=== PATIENT | male | born 1995 | race Caucasian/White ===

== ENCOUNTER 2017-11-05 10:12 | Emergency (ER) | END 2017-11-05 15:00 | disposition home or self-care (01) | DX: T40.1X1A Poisoning by heroin, accidental (unintentional), initial encounter (principal); R00.0 Tachycardia, unspecified; F11.23 Opioid dependence with withdrawal | CPT/HCPCS: 80053; 80307; 85025; 93005; 96374; 99284; J2060; J7030 ==

== ENCOUNTER 2017-12-26 00:01 | Inpatient (IN) ==
[2017-12-26] MEDS ORDERED: Sod Chloride 0.9% Inj 1,000 ML IV.SIG ONE ×2 (00:29→04:16)
[2017-12-26 00:52] LABS: Baso # (Auto) 0.1 th/mm3 (0.0-0.2); Baso % (Auto) 0.4 % (0.0-2.0); Eos # (Auto) 0.2 th/mm3 (0.0-0.4); Eos % (Auto) 1.1 % (0.0-4.0); Hematocrit 45.3 % (39.0-51.0); Hemoglobin 14.8 gm/dL (13.0-17.0); Lymph # (Auto) 1.2 th/mm3 (1.0-4.8); Lymph % (Auto) 7.8 % (9.0-44.0); Mean Corpuscular HGB Conc 32.6 % (32.0-36.0); Mean Corpuscular Hemoglobin 28.9 pg (27.0-34.0); Mean Corpuscular Volume 88.5 fL (80.0-100.0); Mean Platelet Volume 8.3 fL (7.0-11.0); Mono # (Auto) 0.5 th/mm3 (0.0-0.9); Mono % (Auto) 3.2 % (0.0-8.0); Neut # (Auto) 13.4 th/mm3 (1.8-7.7); Neut % (Auto) 87.5 % (16.0-70.0); Platelet Count 349 th/mm3 (150-450); Red Blood Count 5.11 mil/mm3 (4.50-5.90); Red Cell Distribution Width 13.8 % (11.6-17.2); White Blood Count 15.3 th/mm3 (4.0-11.0)
--- NOTE | 2017-12-26 01:12 | XR ---
EXAM DATE: 12/26/2017 12:59 AM EDT AGE/SEX: 22 years / Male INDICATIONS: Pain. CLINICAL DATA: This is the patient's initial encounter. Patient reports that signs and symptoms have been present for 1 day and indicates a pain score of Nonresponsive. MEDICAL/SURGICAL HISTORY: Non-responsive. Non-responsive. COMPARISON: No prior exams available for comparison. FINDINGS: Bony structures are intact and in normal alignment. Osseous density is normal. Soft tissues are unre markable. No radiopaque foreign bodies seen. CONCLUSION: Normal radiographic appearance of the left femur. Electronically signed by: Isidro Riley MD 12/26/2017 1:10 AM EDT
[2017-12-26 01:38] LABS: Alanine Aminotransferase 25 U/L (12-78); Albumin 4.6 g/dL (3.4-5.0); Anion Gap 19 meq/L (5-15); Aspartate Aminotransferase 22 U/L (15-37); Blood Urea Nitrogen 19 mg/dL (7-18); Carbon Dioxide 18.3 meq/L (21.0-32.0); Chloride 109 meq/L (98-107); Glomerular Filtration Rate 35 mL/min (>89); Glucose,Random 109 mg/dL (74-106); Sodium 146 meq/L (136-145)
[2017-12-26 01:47] LABS: Alkaline Phosphatase 106 U/L (45-117)
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
[2017-12-26] MEDS ORDERED: Bisacodyl 10 MG Supp RECTAL PRN (05:50)
[2017-12-26] MEDS: Sodium Chloride 0.45 % Inj 1,000 ML IV.CONT SCH ×3 (06:34→20:13)
[2017-12-26 07:21] LABS: CKMB Percent 1.1 % (0.0-4.0); Creatine Kinase MB 4.6 ng/mL (0.5-3.6)
[2017-12-26 09:59] LABS: Amorphous Sediment,Urine Occasional /hpf; Bilirubin,Urine Negative (Negative); Clarity,Urine Hazy (Clear); Color,Urine Yellow (Yellw/Straw); Glucose,Urine (UA) 50 mg/dL (Negative); Hyaline Casts,Urine 3 /lpf (0-3); Leukocyte Esterase,Urine Negative (Negative); Mucus,Urine Few /lpf (Occasional); Nitrite,Urine Negative (Negative); Squamous Epithelial Cell,Urine <1 /hpf (0-5)
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
[2017-12-26 15:09] LABS: Calcium 7.9 mg/dL (8.5-10.1); Carbon Dioxide 23.3 meq/L (21.0-32.0); Potassium 3.7 meq/L (3.5-5.1)
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
[2017-12-27] MEDS: Sodium Chloride 0.45 % Inj 1,000 ML IV.CONT SCH ×2 (03:00→08:45)
[2017-12-27 07:25] LABS: Baso % (Auto) 0.5 % (0.0-2.0); Eos # (Auto) 0.2 th/mm3 (0.0-0.4); Eos % (Auto) 2.3 % (0.0-4.0); Hematocrit 36.5 % (39.0-51.0); Hemoglobin 12.3 gm/dL (13.0-17.0); Lymph # (Auto) 2.5 th/mm3 (1.0-4.8); Lymph % (Auto) 23.7 % (9.0-44.0); Mean Corpuscular HGB Conc 33.8 % (32.0-36.0); Mean Corpuscular Hemoglobin 29.8 pg (27.0-34.0); Mean Corpuscular Volume 88.2 fL (80.0-100.0); Mean Platelet Volume 8.4 fL (7.0-11.0); Mono % (Auto) 9.7 % (0.0-8.0); Neut # (Auto) 6.8 th/mm3 (1.8-7.7); Neut % (Auto) 63.8 % (16.0-70.0); Platelet Count 212 th/mm3 (150-450); Red Blood Count 4.14 mil/mm3 (4.50-5.90); Red Cell Distribution Width 13.9 % (11.6-17.2); White Blood Count 10.6 th/mm3 (4.0-11.0)
[2017-12-27 07:31] LABS: Amphetamine Screen,Urine Neg (Neg); Barbiturate Screen,Urine Neg (Neg); Cannabinoid Screen,Urine Neg (Neg); Cocaine Screen,Urine Pos (Neg)
[2017-12-27 07:34] LABS: Opiate Screen,Urine Pos (Neg)
[2017-12-27 07:44] LABS: Calcium 8.7 mg/dL (8.5-10.1); Carbon Dioxide 26.2 meq/L (21.0-32.0); Potassium 3.5 meq/L (3.5-5.1)
--- NOTE | 2017-12-27 13:11 | P.PN ---
Subjective Interval history: Follow-up acute kidney disease/heroine abuse December 27, 2017-patient seen and examined, alert and oriented 3, renal indices improved, Physical Exam Vital signs: Vital Signs 12/26/17 16:00 12/26/17 17:33 12/26/17 20:00 Temperature 98.2 F 97.5 F L Pulse Rate 52 L 54 L Respiratory Rate 20 16 Blood Pressure 128/69 126/76 Pulse Oximetry 99 97 100 12/27/17 00:00 12/27/17 04:00 12/27/17 08:00 Temperature 98.4 F 97.9 F 97.9 F Pulse Rate 56 L 59 L 50 L Respiratory Rate 16 16 20 Blood Pressure 113/56 L 135/67 112/58 L Pulse Oximetry 93 L 97 98 Intake & Output 12/26/17 12/27/17 12/27/17 18:59 06:59 18:59 Intake Total 1360 / 1360 2810 / 2810 1000 / 1000 Output Total 520 / 520 1400 / 1400 Balance 840 / 840 1410 / 1410 1000 / 1000 Weight 89.5 kg 90.9 kg Intake: IV 1000 / 1000 2000 / 2000 1000 / 1000 1/2 Normal Saline Inj 1,000 ML 1000 / 1000 2000 / 2000 1000 / 1000 @ 150 mls/hr IV.CONT .[id number] [facility] Rx#:[id number] Oral 360 / 360 810 / 810 Output: Urine 520 / 520 1400 / 1400 Other: # Voids 3 1 # Bowel Movements 1 0 Weight On Admission 89.5 kg Narrative: GENERAL: NAD SKIN: Warm and dry. HEAD: Normocephalic. EYES: No scleral icterus. No injection or drainage. NECK: Supple, trachea midline. No JVD or lymphadenopathy. CARDIOVASCULAR: Regular rate and rhythm without murmurs, gallops, or rubs. RESPIRATORY: Breath sounds equal bilaterally. No accessory muscle use. GASTROINTESTINAL: Abdomen soft, non-tender, nondistended. MUSCULOSKELETAL: No cyanosis, or edema. BACK: Nontender without obvious deformity. No CVA tenderness. Results - Labs CBC & Chem 7: 12/27/17 05:47 12/27/17 06:47 Laboratory Results - last 24 hr 12/26/17 12/27/17 12/27/17 14:10 05:47 06:45 WBC 10.6 RBC 4.14 L Hgb 12.3 L D Hct 36.5 L MCV 88.2 MCH 29.8 MCHC 33.8 RDW 13.9 Plt Count 212 D MPV 8.4 Neut % (Auto) 63.8 Lymph % (Auto) 23.7 Cannon % (Auto) 9.7 H Eos % (Auto) 2.3 Baso % (Auto) 0.5 Neut # (Auto) 6.8 Lymph # (Auto) 2.5 Cannon # (Auto) 1.0 H Eos # (Auto) 0.2 Baso # (Auto) 0.0 WBC Differential . Differential Comment Auto diff final Sodium 141 Potassium 3.7 Chloride 108 H Carbon Dioxide 23.3 Anion Gap 10 BUN 18 Creatinine 1.82 H Estimated GFR 47 L Random Glucose 87 Calcium 7.9 L D Urine Opiates Screen Pos H Ur Barbiturates Screen Neg Ur Amphetamines Screen Neg U Benzodiazepines Scrn Neg Urine Cocaine Screen Pos U Cannabinoids Screen Neg 12/27/17 06:47 WBC RBC Hgb Hct MCV MCH MCHC RDW Plt Count MPV Neut % (Auto) Lymph % (Auto) Cannon % (Auto) Eos % (Auto) Baso % (Auto) Neut # (Auto) Lymph # (Auto) Cannon # (Auto) Eos # (Auto) Baso # (Auto) WBC Differential Differential Comment Sodium 146 H Potassium 3.5 Chloride 113 H Carbon Dioxide 26.2 Anion Gap 7 BUN 15 Creatinine 1.62 H Estimated GFR 54 L Random Glucose 95 Calcium 8.7 D Urine Opiates Screen Ur Barbiturates Screen Ur Amphetamines Screen U Benzodiazepines Scrn Urine Cocaine Screen U Cannabinoids Screen - Imaging None Assessment and Plan - Assessment (1) Acute kidney injury Code(s): N17.9 - Acute kidney failure, unspecified Status: Acute Plan: Acute kidney injury in patient with active intoxication with heroine. Likely related to dehydration. Improving with IV fluid. Continue IV fluid overnight. Follow-up BMP in a.m. (2) Heroin abuse Code(s): F11.10 - Opioid abuse, uncomplicated Status: Acute Plan: Acutely intoxicated on presentation. Patient is currently resting with no obvious signs of withdrawals. Continue to monitor. Appreciate psychiatry input. Clonidine as needed for withdrawal symptoms - Plan 22-year-old man with Acute renal injury Improved with IV fluid hydration Heroine abuse Counseling against [place] act lifted by psychiatry DVT prophylaxis: Low risk for VTE Discharge Planning: Discharge patient to home Condition on discharge: Improved Regular Diet as tolerated Ad Kate activity Rx written:None Follow-up with primary care physician in 1 week
== END 2017-12-27 15:13 | disposition home or self-care (01) ==
LOC: NEPE 00:01 → NEDA 06:58 → N04 11:31
PROVIDERS: ADMIT Hospitalist; ATTEND Hospitalist

== ENCOUNTER 2018-02-20 10:40 | Inpatient (IN) ==
[2018-02-20] MEDS ORDERED: Sod Chloride 0.9% Inj 1,000 ML IV.SIG ONE (12:06)
--- NOTE | 2018-02-20 12:18 | ED ---
HPI General Chief complaint: Respiratory Symptoms Stated complaint: medical complaint Time Seen by Provider: 02/20/18 11:42 Source: patient Mode of arrival: ambulatory Limitations: no limitations History of Present Illness HPI narrative: 22-year-old male with a history of IV drug use currently in a sober living home presents to the emergency department for evaluation after being notified of a "abnormal chest x-ray" that was obtained 3 weeks ago. Patient states that [facility] yesterday and was being treated for a right knee septic arthritis and an abscess to the right calf. Says that he received treatment from January 29 - February 19 with daptomycin. States his last dose was yesterday. Says the PICC line was removed because patient was unable to obtain home health care. Currently, patient states that his right knee is still painful but is able to ambulate. He denies subjective fevers or chills. Denies shortness of breath but states he has pain with deep breaths in his right posterior chest. Onset (ago): week(s) Location: lower extremity Radiation: non-radiation Severity: mild Pain Consistency: intermittent Relieving factors: none Associated symptoms: denies other symptoms Related Data Home Medications Medication Instructions Recorded Confirmed No Known Home Medications 12/26/17 02/20/18 Allergies Allergy/AdvReac Type Severity Reaction Status Date / Time No Known Allergies Allergy Verified 02/20/18 11:44 Review of Systems ROS: all other systems reviewed are negative [facility] Social History Social History Substance History: Active Abuse Second Hand Smoke Exposure: Yes Smoking Status: Former smoker Tobacco Type: Cigarettes How Often Do You Have a Drink Containing Alcohol: Monthly or less Recent Travel in [facility] within the Last 8 Weeks: No Recent Out of Country Travel within the Last 8 Weeks: No Immunization History Tetanus Immunization: <5 Years Hx Influenza Vaccine This Season: No Exam Narrative Exam Narrative: GENERAL: WD, WN in NAD SKIN: Focused skin assessment warm/dry. HEAD: Atraumatic. Normocephalic. EYES: Pupils equal and round. No scleral icterus. No injection or drainage. ENT: No nasal bleeding or discharge. Mucous membranes pink and moist. NECK: Trachea midline. No JVD. CARDIOVASCULAR: Regular rate and rhythm. No murmur appreciated. RESPIRATORY: No accessory muscle use. Clear to auscultation. Breath sounds equal bilaterally. GASTROINTESTINAL: Abdomen soft, non-tender, nondistended. Hepatic and splenic margins not palpable. No CVA tenderness MUSCULOSKELETAL: No obvious deformities. No clubbing. No cyanosis. No edema. Right knee-edematous when compared to the right, mild tenderness to palpation, full range of motion. No erythema. Skin intact. Neurovascularly intact. 3 cm incision site along the lateral aspect of the knee without dehiscence or erythema. Appears to be healing well. 10 cm healing incision site without erythema or dehiscence. NEUROLOGICAL: Awake and alert. No obvious cranial nerve deficits. Motor grossly within normal limits. Normal speech. PSYCHIATRIC: Appropriate mood and affect; insight and judgment normal. Course Initial Documented Vital Signs Temperature 98.9 F 02/20/18 10:48 Pulse Rate 84 02/20/18 10:48 Respiratory Rate 19 02/20/18 10:48 Blood Pressure 136/60 02/20/18 10:48 Pulse Oximetry 100 02/20/18 10:48 Last Documented Vital Signs Temperature 98.9 F 02/20/18 10:48 Pulse Rate 79 02/20/18 16:06 Respiratory Rate 16 02/20/18 16:06 Blood Pressure 136/80 02/20/18 16:06 Pulse Oximetry 100 02/20/18 16:06 Medical Decision Making MDM Narrative Medical decision making narrative: 22-year-old male presents to the emergency department for evaluation after being told he had a "abnormal chest x-ray". [facility] and was in treatment for right knee septic arthritis. He was receiving daptomycin 500 mg once a day approximately 2 weeks and his last dose was yesterday. He is does admit to chest pain with breathing. Vital signs stable. Labs are stable. Order CTA as patient states he has a history of IVDU, septic arthritis, pleuritic chest pain, and abnormal chest x-ray. CT is concerning for septic embolic disease. Will initiate vancomycin and zosyn. Pt will be admitted for IV abx. Spoke with Dr. Mata who agreed with the admission. Medical Screen Exam Complete: Yes Emergency Medical Condition: Yes Differential Diagnosis Differential Diagnosis: Septic pulmonary embolism, pulmonary embolism, pneumonia , arthritis Medical Records Medical records reviewed: Yes I reviewed the patient's medical records. Patient brought in records from [facility] from January 29 -February 05. He [facility] from the [facility] with right leg pain for about a week. He was seen by Dr. Fontaine, orthopedics and had a right knee arthrotomy with irrigation and debridement and right calf abscess with irrigation debridement. Infectious disease and orthopedic consults were continued and daptomycin 500mg IV Q24hrs was initiated. According to the notes page 3 of 46 and discharge disposition it states "if he gets released from correctional facility, then breanna WEEMS will remove his PICC line. Patient may come back to hospital for continuation of his treatment.". According to patient did not receive [facility] because he 'does not have insurance'. Lab Data Lab results reviewed: Yes I reviewed the patient's lab results. Lab results narrative: Reviewed from records January 29 - February [address] [facility]. Labs reported here to Joe February 17 demonstrates elevated white blood cell count 13.9, platelets 715. January 29, 2018 d-dimer 3.27. I do not see that patient has had a CT pulmonary angiogram of his chest in the [facility] notes, outpatient imaging with [facility], or in our system. Result diagrams: 02/20/18 13:18 02/20/18 13:18 Lab Results 02/20/18 02/20/18 02/20/18 Range/Units 13:18 13:18 13:18 WBC 6.7 (4.0-11.0) th/mm3 RBC 3.70 L (4.50-5.90) mil/mm3 Hgb 10.8 L (13.0-17.0) gm/dL Hct 32.5 L (39.0-51.0) % MCV 87.9 (80.0-100.0) fL MCH 29.2 (27.0-34.0) pg MCHC 33.3 (32.0-36.0) % RDW 14.5 (11.6-17.2) % Plt Count 412 D (150-450) th/mm3 MPV 7.5 (7.0-11.0) fL Neut % (Auto) 60.6 (16.0-70.0) % Lymph % (Auto) 28.5 (9.0-44.0) % Cla[place]orne % (Auto) 7.4 (0.0-8.0) % Eos % (Auto) 2.8 (0.0-4.0) % Baso % (Auto) 0.7 (0.0-2.0) % Neut # (Auto) 4.1 (1.8-7.7) th/mm3 Lymph # (Auto) 1.9 (1.0-4.8) th/mm3 [place]orne # (Auto) 0.5 (0.0-0.9) th/mm3 Eos # (Auto) 0.2 (0.0-0.4) th/mm3 Baso # (Auto) 0.0 (0.0-0.2) th/mm3 WBC Differential . Differential Comment Auto diff final PT 11.4 (9.8-11.6) sec INR 1.1 Ratio APTT (24.3-30.1) sec Sodium 142 (136-145) meq/L Potassium 4.0 (3.5-5.1) meq/L Chloride 105 (98-107) meq/L Carbon Dioxide 27.3 (21.0-32.0) meq/L Anion Gap 10 (5-15) meq/L BUN 11 (7-18) mg/dL Creatinine 0.87 (0.60-1.30) mg/dL Estimated GFR Greater than 89 (>89) mL/min Random Glucose 88 (74-106) mg/dL Lactic Acid (0.4-2.0) mmol/L Calcium 9.4 (8.5-10.1) mg/dL Total Bilirubin 0.3 (0.2-1.0) mg/dL AST 14 L (15-37) U/L ALT 43 (12-78) U/L Alkaline Phosphatase 140 H (45-117) U/L Total Protein 9.0 H (6.4-8.2) g/dL Albumin 3.1 L (3.4-5.0) g/dL 02/20/18 02/20/18 Range/Units 13:18 13:19 WBC (4.0-11.0) th/mm3 RBC (4.50-5.90) mil/mm3 Hgb (13.0-17.0) gm/dL Hct (39.0-51.0) % MCV (80.0-100.0) fL MCH (27.0-34.0) pg MCHC (32.0-36.0) % RDW (11.6-17.2) % Plt Count (150-450) th/mm3 MPV (7.0-11.0) fL Neut % (Auto) (16.0-70.0) % Lymph % (Auto) (9.0-44.0) % Cla[place]orne % (Auto) (0.0-8.0) % Eos % (Auto) (0.0-4.0) % Baso % (Auto) (0.0-2.0) % Neut # (Auto) (1.8-7.7) th/mm3 Lymph # (Auto) (1.0-4.8) th/mm3 Cla[place]orne # (Auto) (0.0-0.9) th/mm3 Eos # (Auto) (0.0-0.4) th/mm3 Baso # (Auto) (0.0-0.2) th/mm3 WBC Differential Differential Comment PT (9.8-11.6) sec INR Ratio APTT 25.7 (24.3-30.1) sec Sodium (136-145) meq/L Potassium (3.5-5.1) meq/L Chloride (98-107) meq/L Carbon Dioxide (21.0-32.0) meq/L Anion Gap (5-15) meq/L BUN (7-18) mg/dL Creatinine (0.60-1.30) mg/dL Estimated GFR (>89) mL/min Random Glucose (74-106) mg/dL Lactic Acid 1.1 (0.4-2.0) mmol/L Calcium (8.5-10.1) mg/dL Total Bilirubin (0.2-1.0) mg/dL AST (15-37) U/L ALT (12-78) U/L Alkaline Phosphatase (45-117) U/L Total Protein (6.4-8.2) g/dL Albumin (3.4-5.0) g/dL Imaging Data Radiologist's impression: Chest CTA 02/20/18 12:06 CONCLUSION: 1. No evidence for pulmonary embolism. 2. Bilateral cavitary nodules identified. Bilateral septic embolic disease would be the leading consideration given the history. Discharge Plan Discharge Disposition Patient Disposition: 30 Still Patient Discharge Condition Condition: Stable Discharge Details Diagnosis: Acute septic pulmonary embolus Physicians Team ED Provider: Nida Beasley ED Midlevel Provider: Noa Butler Primary Care Provider: Primary Care Diane Oquendo Attending Provider: Alber Mata Other Providers: Shree Pablo Status ED Status: Admitted Observation Patient
[2018-02-20 13:47] LABS: INR 1.1 Ratio; Prothrombin Time 11.4 sec (9.8-11.6)
[2018-02-20 13:50] LABS: Baso % (Auto) 0.7 % (0.0-2.0); Eos # (Auto) 0.2 th/mm3 (0.0-0.4); Eos % (Auto) 2.8 % (0.0-4.0); Hematocrit 32.5 % (39.0-51.0); Hemoglobin 10.8 gm/dL (13.0-17.0); Lymph # (Auto) 1.9 th/mm3 (1.0-4.8); Lymph % (Auto) 28.5 % (9.0-44.0); Mean Corpuscular HGB Conc 33.3 % (32.0-36.0); Mean Corpuscular Hemoglobin 29.2 pg (27.0-34.0); Mean Corpuscular Volume 87.9 fL (80.0-100.0); Mean Platelet Volume 7.5 fL (7.0-11.0); Mono # (Auto) 0.5 th/mm3 (0.0-0.9); Mono % (Auto) 7.4 % (0.0-8.0); Neut # (Auto) 4.1 th/mm3 (1.8-7.7); Neut % (Auto) 60.6 % (16.0-70.0); Platelet Count 412 th/mm3 (150-450); Red Cell Distribution Width 14.5 % (11.6-17.2); White Blood Count 6.7 th/mm3 (4.0-11.0)
[2018-02-20 14:22] LABS: Alanine Aminotransferase 43 U/L (12-78); Albumin 3.1 g/dL (3.4-5.0); Anion Gap 10 meq/L (5-15); Aspartate Aminotransferase 14 U/L (15-37); Blood Urea Nitrogen 11 mg/dL (7-18); Calcium 9.4 mg/dL (8.5-10.1); Carbon Dioxide 27.3 meq/L (21.0-32.0); Chloride 105 meq/L (98-107); Glomerular Filtration Rate Greater Than 89 mL/min (>89); Glucose,Random 88 mg/dL (74-106); Sodium 142 meq/L (136-145)
[2018-02-20 14:24] LABS: Alkaline Phosphatase 140 U/L (45-117)
--- NOTE | 2018-02-20 15:49 | CT ---
EXAM DATE: 02/20/2018 3:39 PM EDT AGE/SEX: 22 years / Male INDICATIONS: Shortness of breath for a couple weeks. CLINICAL DATA: This is the patient's initial encounter. Patient reports that signs and symptoms have been present for 2 weeks and indicates a pain score of 4/10. MEDICAL/SURGICAL HISTORY: . MRSA, septic arthritis. None. RADIATION DOSE: 9.97 CTDI (mGy) COMPARISON: No prior exams available for comparison. TECHNIQUE: Volumetric scanning was performed using a multi-row detector CT scanner during bolus infu oxana of 75 ml Omnipaque 350 (iohexol) nonionic water-soluble contrast as a single exam dose. The john a was post processed with a variety of visualization algorithms including full volume maximum intensi ty projection and sliding thin slab reformation. Using automated exposure control and adjustment of the mA and/or kV according to patient size, radiation dose was kept as low as reasonably achievable t o obtain optimal diagnostic quality images. DICOM format image data is available electronically for review and comparison. FINDINGS: The superior segment of the left lower lobe a thick walled cavitary focus is identified with air-flui d level measuring 2 x 1.2 cm in AP transverse dimension. There is also a cavitary mass with air-fluid level and thick wall in the right lower lobe measuring 4.2 x 2.5 cm in transverse and AP dimension, adjacent right lower lobe cavitary pleural-based lesion with air-fluid level measuring 2.8 x 2.7 cm i n transverse and AP dimension. There is a small thick walled cavitary lesion in the left lower lobe m easuring 1.5 cm x 1.0 cm on image 92. No pathologically enlarged lymph nodes. No pleural or pericardi al effusions. There are no pulmonary emboli identified. Osseous structures are intact. CONCLUSION: 1. No evidence for pulmonary embolism. 2. Bilateral cavitary nodules identified. Bilateral septic embolic disease would be the leading cons ideration given the history. Electronically signed by: Agapito Clayton MD 02/20/2018 3:48 PM EDT
[2018-02-20] MEDS ORDERED: Piperacil/Tazo 4.5 GM Premix 4.5 GM/100 ML BAG IV.SIG ONE (15:52)
[2018-02-20] MEDS ORDERED: Vancomycin Inj 1 GM/200 ML PIGGYBACK IV.SIG ONE (15:52)
[2018-02-20] MEDS ORDERED: Bisacodyl 10 MG Supp RECTAL PRN ×2 (16:49→16:51)
[2018-02-20] MEDS ORDERED: Vancomycin Consult Pharmacy OTHER PRN (16:53)
--- NOTE | 2018-02-20 16:56 | P.HP ---
History of Present Illness Primary Care Physician: No Primary Care Physician Chief Complaint: Abnormal CXR History of Present Illness: This is a pleasant 22-year-old male with a history of IV drug use currently in a sober living home presents to the emergency department for evaluation after being notified of a "abnormal chest x-ray" that was obtained 3 weeks ago. Patient states that he [facility] and was being treated for a right knee septic arthritis and an abscess to the right calf. Says that he received treatment from January 29 - February 19 with daptomycin. States his last dose was yesterday. Says the PICC line was removed because patient was unable to obtain home health care. Currently, patient states that his right knee is still painful but is able to ambulate. He denies subjective fevers or chills. Denies shortness of breath but states he has pain with deep breaths in his right posterior chest. Review of Systems All other systems reviewed negative except as stated in HPI PMFSH - History History Provided By: Patient - Medical History Medical History: Medical History (Last Updated 02/20/18 @ 19:52 by Alber Mata MD) Recent surgical procedure on lower extremity - Surgical History Surgical History: Surgical History (Last Reviewed 01/17/18 @ 03:40 by Rachel Ordonez DO) No history of previous surgery - Family History Family History: Family History (Last Updated 02/20/18 @ 19:51 by Alber Mata MD) Other Family history of hypertension - Tobacco History Second Hand Smoke Exposure: Yes Smoking Status: Former smoker Tobacco Type: Cigarettes - Alcohol History How Often Do You Have a Drink Containing Alcohol: Monthly or less - Substance Use History Substance History: Active Abuse - Travel History Recent Travel in the [facility] Within the Last 8 Weeks: No Recent Travel Out of the Country Within the Last 8 Weeks: No - Immunization History Tetanus Immunization: <5 Years Hx Influenza Vaccine This Season: No Medications and Allergies Active Medications: Active Medications Vancomycin HCl 1,000 mg/ (Sodium Chloride) 250 mls @ 200 mls/hr IV.SIG ONCE ONE Stop: 02/20/18 18:14 Sodium Chloride (Ns Flush) 2 ml IV.FLUSH PRN PRN PRN Reason: FLUSH AFTER USING IV ACCESS Allergies Allergy/AdvReac Type Severity Reaction Status Date / Time No Known Allergies Allergy Verified 02/20/18 11:44 Home Medications Medication Instructions Recorded Confirmed Type No Known Home Medications 12/26/17 02/20/18 History Exam Vital signs: Vital Signs 02/20/18 10:48 02/20/18 12:06 02/20/18 16:06 Temperature 98.9 F Pulse Rate 84 79 Respiratory Rate 19 16 Blood Pressure 136/60 136/80 Pulse Oximetry 100 97 100 Intake & Output 02/19/18 02/20/18 02/20/18 18:59 06:59 18:59 Intake Total 1000 / 1000 Balance 1000 / 1000 Weight 74.843 kg Intake: IV 1000 / 1000 NS Inj 1,000 ML @ Wide Open IV. 1000 / 1000 SIG BOLUS ONE Rx#:[id number] Narrative: GENERAL: WD, WN in NAD SKIN: Focused skin assessment warm/dry. HEAD: Atraumatic. Normocephalic. EYES: Pupils equal and round. No scleral icterus. No injection or drainage. ENT: No nasal bleeding or discharge. Mucous membranes pink and moist. NECK: Trachea midline. No JVD. CARDIOVASCULAR: Regular rate and rhythm. No murmur appreciated. RESPIRATORY: No accessory muscle use. Clear to auscultation. Breath sounds equal bilaterally. GASTROINTESTINAL: Abdomen soft, non-tender, nondistended. Hepatic and splenic margins not palpable. No CVA tenderness MUSCULOSKELETAL: No obvious deformities. No clubbing. No cyanosis. No edema. Right knee-edematous when compared to the right, mild tenderness to palpation, full range of motion. No erythema. Skin intact. Neurovascularly intact. 3 cm incision site along the lateral aspect of the knee without dehiscence or erythema. Appears to be healing well. 10 cm healing incision site without erythema or dehiscence. NEUROLOGICAL: Awake and alert. No obvious cranial nerve deficits. Motor grossly within normal limits. Normal speech. PSYCHIATRIC: Appropriate mood and affect; insight and judgment normal. Results - Labs CBC & Chem 7: 02/20/18 13:18 02/20/18 13:18 Labs: Laboratory Results - last 24 hr 02/20/18 02/20/18 02/20/18 13:18 13:18 13:18 WBC 6.7 RBC 3.70 L Hgb 10.8 L Hct 32.5 L MCV 87.9 MCH 29.2 MCHC 33.3 RDW 14.5 Plt Count 412 D MPV 7.5 Neut % (Auto) 60.6 Lymph % (Auto) 28.5 Marion % (Auto) 7.4 Eos % (Auto) 2.8 Baso % (Auto) 0.7 Neut # (Auto) 4.1 Lymph # (Auto) 1.9 Marion # (Auto) 0.5 Eos # (Auto) 0.2 Baso # (Auto) 0.0 WBC Differential . Differential Comment Auto diff final PT 11.4 INR 1.1 APTT Sodium 142 Potassium 4.0 Chloride 105 Carbon Dioxide 27.3 Anion Gap 10 BUN 11 Creatinine 0.87 Estimated GFR Greater than 89 Random Glucose 88 Lactic Acid Calcium 9.4 Total Bilirubin 0.3 AST 14 L ALT 43 Alkaline Phosphatase 140 H Total Protein 9.0 H Albumin 3.1 L 02/20/18 02/20/18 13:18 13:19 WBC RBC Hgb Hct MCV MCH MCHC RDW Plt Count MPV Neut % (Auto) Lymph % (Auto) Marion % (Auto) Eos % (Auto) Baso % (Auto) Neut # (Auto) Lymph # (Auto) Marion # (Auto) Eos # (Auto) Baso # (Auto) WBC Differential Differential Comment PT INR APTT 25.7 Sodium Potassium Chloride Carbon Dioxide Anion Gap BUN Creatinine Estimated GFR Random Glucose Lactic Acid 1.1 Calcium Total Bilirubin AST ALT Alkaline Phosphatase Total Protein Albumin - Imaging Impressions Chest CTA 02/20/18 12:06 CONCLUSION: 1. No evidence for pulmonary embolism. 2. Bilateral cavitary nodules identified. Bilateral septic embolic disease would be the leading consideration given the history. Caprini VTE Risk Assessment Caprini VTE Risk Assessment: Moderate/High Risk (score >= 2) Caprini Risk Assessment Model: Point Value = 1 Point Value = 2 Point Value = 3 Point Value = 5 Age 41-60 Minor surgery BMI > 25 kg/m2 Swollen legs Varicose veins or History of unexplained or recurrent spontaneous Oral contraceptives or hormone replacement Sepsis (< 1 month) Serious lung disease, including pneumonia (< 1 month) Abnormal pulmonary function Acute myocardial infarction Congestive heart failure (< 1 month) History of inflammatory bowel disease Medical patient at bed rest Age 61-74 Arthroscopic surgery Major open surgery (> 45 min) Laparoscopic surgery (> 45 min) Malignancy Confined to bed (> 72 hours) Immobilizing plaster cast Central venous access Age >= 75 History of VTE Family history of VTE Factor V Leiden Prothrombin [id number] Lupus anticoagulant Anticardiolipin antibodies Elevated serum homocysteine Heparin-induced thrombocytopenia Other congenital or acquired thrombophilia Stroke (< 1 month) Elective arthroplasty Hip, pelvis, or leg fracture Acute spinal cord injury (< 1 month) Prophylaxis Regimen: Total Risk Factor Score Risk Level Prophylaxis Regimen 0-1 Low Early ambulation 2 Moderate Order ONE of the following: *Sequential Compression Device (SCD) *Heparin 5000 units SQ BID 3-4 Higher Order ONE of the following medications: *Heparin 5000 units SQ TID *Enoxaparin/Lovenox 40 mg SQ daily (WT < 150 kg, CrCl > 30 mL/min) *Enoxaparin/Lovenox 30 mg SQ daily (WT < 150 kg, CrCl > 10-29 mL/min) *Enoxaparin/Lovenox 30 mg SQ BID (WT < 150 kg, CrCl > 30 mL/min) AND/OR *Sequential Compression Device (SCD) 5 or more Highest Order ONE of the following medications: *Heparin 5000 units SQ TID (Preferred with Epidurals) *Enoxaparin/Lovenox 40 mg SQ daily (WT < 150 kg, CrCl > 30 mL/min) *Enoxaparin/Lovenox 30 mg SQ daily (WT < 150 kg, CrCl > 10-29 mL/min) *Enoxaparin/Lovenox 30 mg SQ BID (WT < 150 kg, CrCl > 30 mL/min) AND *Sequential Compression Device (SCD) Assessment and Plan - Plan 1. Septic Emboli discussed with ER physician, the patient had CTA with evidence of Bilateral Cavitary nodules bilateral Septic embolic disease, started on Vancomycin and Zosyn, following ID specialist recommendations Echocardiogram, following blood cultures. 2. right calf abscess status post surgery, will need to get his History from [facility] 3. Active IVDU. DVt prophylaxis with Lovenox. Code Status: Full code. Discussed Condition With: patient and ER physician Discharge Planning: once cleared by specialist.
[2018-02-20] MEDS ORDERED: Vancomycin Inj 1,000 MG in Sodium Chlor 0.9% Inj 250 ML IV.SIG ONE (17:00)
[2018-02-20] MEDS: Sod Chloride 0.9% Inj 1,000 ML IV.CONT SCH (18:51)
[2018-02-20] MEDS ORDERED: Senna/Docusate Sodium 8.6/50 MG Tablet PO SCH (21:00)
[2018-02-20 21:36] LABS: Hepatitits B Surface Antigen Nonreactive (Nonreactive)
[2018-02-20 21:53] LABS: Hepatitis A IgM Antibody Nonreactive (Nonreactive)
[2018-02-20] MEDS: Enoxaparin Inj 40 MG/0.4 ML Syringe SQ SCH (22:41)
[2018-02-20] MEDS: guaiFENesin 600 MG ER Tablet PO SCH (22:41)
[2018-02-20] MEDS: Piperacil/Tazo 3.375 GM Premix 50 ML IV.SIG SCH (22:41)
[2018-02-20] MEDS: Senna/Docusate Sodium 8.6/50 MG Tablet PO SCH (22:42)
[2018-02-20] MEDS: Vancomycin Inj 1,000 MG in Sodium Chlor 0.9% Inj 250 ML IV.SIG SCH (23:27)
[2018-02-21] MEDS: Acetaminophen 325 MG Tablet PO PRN ×3 (00:10→09:12)
[2018-02-21] MEDS: Sod Chloride 0.9% Inj 1,000 ML IV.CONT SCH ×2 (03:12→15:56)
[2018-02-21] MEDS: Piperacil/Tazo 3.375 GM Premix 50 ML IV.SIG SCH ×4 (04:07→21:42)
[2018-02-21] MEDS: guaiFENesin 600 MG ER Tablet PO SCH ×2 (09:12→21:42)
[2018-02-21] MEDS: Senna/Docusate Sodium 8.6/50 MG Tablet PO SCH ×2 (09:12→22:16)
[2018-02-21] MEDS: Vancomycin Inj 1,000 MG in Sodium Chlor 0.9% Inj 250 ML IV.SIG SCH ×2 (09:13→18:20)
--- NOTE | 2018-02-21 11:32 | P.PN ---
Subjective Interval history: Patient seen and examined this morning, their vitals are stable and the patient is afebrile. Denies CP or SOB. Taking he feels weak. Right knee with limited ROM, asking for physical therapy. Worried that he cannot pay for his hospitalization, wants to go back to his sober living. Physical Exam Vital signs: Vital Signs 02/20/18 12:06 02/20/18 16:06 02/20/18 20:00 Temperature Pulse Rate 79 Respiratory Rate 16 Blood Pressure 136/80 Pulse Oximetry 97 100 98 02/20/18 22:00 02/21/18 00:00 02/21/18 00:32 Temperature 97.5 F L 98 F Pulse Rate 83 68 65 Respiratory Rate 16 16 16 Blood Pressure 130/71 120/66 Pulse Oximetry 100 100 02/21/18 01:21 02/21/18 03:50 02/21/18 06:13 Temperature 98 F Pulse Rate 65 Respiratory Rate 18 16 18 Blood Pressure 122/60 Pulse Oximetry 100 02/21/18 08:00 02/21/18 08:24 02/21/18 08:25 Temperature 97.8 F Pulse Rate 58 L 65 Respiratory Rate 20 14 Blood Pressure 121/63 Pulse Oximetry 99 100 Intake & Output 02/20/18 02/21/18 02/21/18 18:59 06:59 18:59 Intake Total 1250 / 1250 4250 / 4250 Output Total 400 / 400 Balance 1250 / 1250 4250 / 4250 -400 / -400 Weight 74.843 kg 75 kg Intake: IV 1250 / 1250 1450 / 1450 NS Inj 1,000 ML @ 100 mls/hr IV 1000 / 1000 .CONT .Q10H [place] Rx#:[id number] Zosyn 3.375 GM Premix 50 ML @ 100 / 100 100 mls/hr IV.SIG Q6H [place] Rx#: [id number] NS Inj 1,000 ML @ Wide Open IV. 1000 / 1000 SIG [facility] ONE Rx#:[id number] Vancomycin Inj 1,000 MG In NS 250 / 250 250 / 250 Inj 250 ML @ 250 mls/hr IV.SIG Q8H [place] Rx#:[id number] Oral 2800 / 2800 Output: Urine 400 / 400 Other: # Voids 5 # Bowel Movements 0 Weight On Admission 74.843 kg Narrative: GENERAL: Well-appearing, no acute distress SKIN: Warm and dry. HEAD: Normocephalic. EYES: No scleral icterus. No injection or drainage. NECK: Supple, trachea midline. No JVD or lymphadenopathy. CARDIOVASCULAR: Regular rate and rhythm without murmurs, gallops, or rubs. RESPIRATORY: Breath sounds equal bilaterally. No accessory muscle use. GASTROINTESTINAL: Abdomen soft, non-tender, nondistended. MUSCULOSKELETAL: Right knee: swollen, limited ROM compared to left, medial incision is c/d/i Results - Labs CBC & Chem 7: 02/21/18 11:15 02/21/18 11:15 Laboratory Results - last 24 hr 02/20/18 02/20/18 02/20/18 13:18 13:18 13:18 WBC 6.7 RBC 3.70 L Hgb 10.8 L Hct 32.5 L MCV 87.9 MCH 29.2 MCHC 33.3 RDW 14.5 Plt Count 412 D MPV 7.5 Neut % (Auto) 60.6 Lymph % (Auto) 28.5 [place] % (Auto) 7.4 Eos % (Auto) 2.8 Baso % (Auto) 0.7 Neut # (Auto) 4.1 Lymph # (Auto) 1.9 [place] # (Auto) 0.5 Eos # (Auto) 0.2 Baso # (Auto) 0.0 WBC Differential . Differential Comment Auto diff final PT 11.4 INR 1.1 APTT Sodium 142 Potassium 4.0 Chloride 105 Carbon Dioxide 27.3 Anion Gap 10 BUN 11 Creatinine 0.87 Estimated GFR Greater than 89 Random Glucose 88 Lactic Acid Calcium 9.4 Total Bilirubin 0.3 AST 14 L ALT 43 Alkaline Phosphatase 140 H Total Protein 9.0 H Albumin 3.1 L TSH Hepatitis A IgM Ab Hep Bs Antigen Hep B Core IgM Ab Hep C IgG Ab HIV 1&2 Ab/P24 Ag 4thGn 02/20/18 02/20/18 02/20/18 13:18 13:19 18:45 WBC RBC Hgb Hct MCV MCH MCHC RDW Plt Count MPV Neut % (Auto) Lymph % (Auto) [place] % (Auto) Eos % (Auto) Baso % (Auto) Neut # (Auto) Lymph # (Auto) [place] # (Auto) Eos # (Auto) Baso # (Auto) WBC Differential Differential Comment PT INR APTT 25.7 Sodium Potassium Chloride Carbon Dioxide Anion Gap BUN Creatinine Estimated GFR Random Glucose Lactic Acid 1.1 Calcium Total Bilirubin AST ALT Alkaline Phosphatase Total Protein Albumin TSH 1.290 Hepatitis A IgM Ab Hep Bs Antigen Hep B Core IgM Ab Hep C IgG Ab HIV 1&2 Ab/P24 Ag 4thGn 02/20/18 02/20/18 18:45 18:45 WBC RBC Hgb Hct MCV MCH MCHC RDW Plt Count MPV Neut % (Auto) Lymph % (Auto) [place] % (Auto) Eos % (Auto) Baso % (Auto) Neut # (Auto) Lymph # (Auto) [place] # (Auto) Eos # (Auto) Baso # (Auto) WBC Differential Differential Comment PT INR APTT Sodium Potassium Chloride Carbon Dioxide Anion Gap BUN Creatinine Estimated GFR Random Glucose Lactic Acid Calcium Total Bilirubin AST ALT Alkaline Phosphatase Total Protein Albumin TSH Hepatitis A IgM Ab Nonreactive Hep Bs Antigen Nonreactive Hep B Core IgM Ab Nonreactive Hep C IgG Ab Nonreactive HIV 1&2 Ab/P24 Ag 4thGn Nonreactive Microbiology 02/20/18 13:14 Blood - Peripheral Aerobic Blood Culture - Preliminary No growth in 1 day 02/20/18 13:14 Blood - Peripheral Anaerobic Blood Culture - Preliminary No growth in 1 day 02/20/18 13:19 Blood - Peripheral Aerobic Blood Culture - Preliminary No growth in 1 day 02/20/18 13:19 Blood - Peripheral Anaerobic Blood Culture - Preliminary No growth in 1 day - Imaging Impressions Chest CTA 02/20/18 12:06 CONCLUSION: 1. No evidence for pulmonary embolism. 2. Bilateral cavitary nodules identified. Bilateral septic embolic disease would be the leading consideration given the history. Assessment and Plan - Plan In summary this is a 22-year-old male with a medical history that is significant for IV drug abuse is currently living in a sober home presented to [facility] after being notified of an abnormal outpatient chest x-ray that was obtained 3 weeks ago. The patient had received treatment from January 29 February 19 with daptomycin for septic arthritis and abscess of the right knee to calf. Recently released from [facility], could not get PICC line due to inability to get home health. Septic emboli -CTA shows evidence of bilateral cavitary nodules with bilateral septic embolic disease -He was started on vancomycin and Zosyn ID was consulted, echo and blood cultures are pending, no growth to date Right calf abscess status post surgical debridement Active IV drug abuse Patient stated he did not want to be on opioids and requested ibuprofen P prophylaxis: Lovenox
[2018-02-21 11:37] LABS: Baso % (Auto) 0.6 % (0.0-2.0); Eos # (Auto) 0.2 th/mm3 (0.0-0.4); Eos % (Auto) 3.2 % (0.0-4.0); Hematocrit 31.9 % (39.0-51.0); Hemoglobin 10.5 gm/dL (13.0-17.0); Lymph # (Auto) 1.3 th/mm3 (1.0-4.8); Lymph % (Auto) 22.6 % (9.0-44.0); Mean Corpuscular HGB Conc 33.1 % (32.0-36.0); Mean Corpuscular Hemoglobin 29.2 pg (27.0-34.0); Mean Corpuscular Volume 88.3 fL (80.0-100.0); Mean Platelet Volume 7.3 fL (7.0-11.0); Mono # (Auto) 0.4 th/mm3 (0.0-0.9); Neut # (Auto) 3.7 th/mm3 (1.8-7.7); Neut % (Auto) 65.6 % (16.0-70.0); Platelet Count 380 th/mm3 (150-450); Red Blood Count 3.61 mil/mm3 (4.50-5.90); Red Cell Distribution Width 14.5 % (11.6-17.2); White Blood Count 5.6 th/mm3 (4.0-11.0)
[2018-02-21 11:58] LABS: Anion Gap 9 meq/L (5-15); Blood Urea Nitrogen 8 mg/dL (7-18); Calcium 8.8 mg/dL (8.5-10.1); Chloride 106 meq/L (98-107); Glomerular Filtration Rate Greater Than 89 mL/min (>89); Glucose,Random 102 mg/dL (74-106); Potassium 4.1 meq/L (3.5-5.1); Sodium 143 meq/L (136-145)
--- NOTE | 2018-02-21 18:31 | MB ---
cc: Shree Pablo MD DATE: 02/21/2018 REQUESTING PHYSICIAN: Dr. Mata REASON: Septic emboli. HISTORY OF PRESENT ILLNESS: This is a 22-year-old white male who was treated for septic arthritis of the right knee and bacteremia at [facility] ([place], [place]). The patient was incarcerated at the [facility] on 01/23/2018 and while he was incarcerated, he developed swelling of his right knee and was sent to [facility] ([place], [place]) for evaluation and was found to have septic arthritis. He was discharged back to the [facility] on IV daptomycin to be treated for 6 weeks. The patient was discharged from the [facility] on 02/19/2018. He tells me that when he was discharged from the [facility] he was told to go and get a CT scan to evaluate an abnormal chest x-ray that was obtained about 3 weeks ago. He states that he was having problems with pain in his upper back and coughing spells and sweats and chills, which would improve with ibuprofen. He was also receiving tramadol at the [facility]. He also notes that he was having occasional cough with yellow sputum. He presented here at [place] and a CT scan of the chest was performed and it showed bilateral cavitary nodules including a cavitary mass with air fluid level and thick wall in the right lower lobe measuring 4.2 x 2.5 cm and in the left lower lobe with thick-walled cavity focus with air fluid level measuring 2 x 1.2 cm. The patient tells me that he was treated for Staph at [facility]. Information about the cultures were unavailable at this time. Currently, is complaining of pain in the right upper back. He states that it has been at the left upper back, as well, but that improved after he heard a "pop" when he twisted his upper back in bed. His white count is normal. He is afebrile. He denies shortness of breath and is comfortable in room air. PAST MEDICAL HISTORY: Cellulitis of the right lower extremity 1 year ago. Septic arthritis of the right knee. ALLERGIES: NO KNOWN DRUG ALLERGIES. MEDICATIONS: 1. Piperacillin/tazobactam. 2. Vancomycin. 3. Ibuprofen. 4. Lovenox. 5. Mucinex. SOCIAL HISTORY: Former tobacco use. Occasional alcohol use. Past history of substance or drug abuse. The patient currently in rehabilitation. FAMILY HISTORY: Noncontributory. REVIEW OF SYSTEMS: All systems have been reviewed and are negative, except for that mentioned in the history of present illness. PHYSICAL EXAMINATION: GENERAL: Well-developed male who is in no acute distress. He is awake and alert and oriented. VITAL SIGNS: Temperature 98 degrees, BP 115/65, respirations 20, heart rate 83. HEENT: Head is atraumatic. Extraocular movements grossly intact. Pupils reactive to light. No icterus. Oropharynx moist mucosa without lesions. No thrush. NECK: Supple, without adenopathy. LUNGS: Clear to auscultation with decreased breath sounds at the bases. HEART: Regular S1, S2, without murmurs, rubs or gallops. ABDOMEN: Bowel sounds present. Soft, no tenderness appreciated. RECTAL: Not performed. EXTREMITIES: No clubbing or cyanosis. The patient has a scar at the inner right tibia, where an abscess was drained recently. Very mild right knee swelling. No peripheral evidence of emboli. SKIN: No rash. NEUROLOGIC: No gross focal finding. PSYCHIATRIC: Patient is calm and cooperative. LABORATORY DATA: WBC 5.6, platelets 386, 5% neutrophils, 22% lymphocytes, 8% monocytes, hemoglobin 10.5, creatinine 0.91, BUN 8, sodium 143. HIV nonreactive. Hepatitis serology is negative. IMPRESSION: Septic emboli lesions in the lungs in a patient with recent bacteremia and septic arthritis of the right knee, who was been treated with daptomycin intravenous which is probably for methicillin-resistant Staphylococcus aureus. However, the culture data is not available at this time. The patient is status post also treatment for septic arthritis of the right knee, which may have been the source of the bacteremia. The patient is in recovery for IV drug abuse. He appears to have good insight. He is anxious to get back to his drug rehabilitation setting once a decision is made on his antibiotic treatment. RECOMMENDATIONS: 1. Continue vancomycin. 2. Continue piperacillin/tazobactam. 3. Order sputum culture if he is able to give a sample. 4. Monitor blood cultures. 5. Monitor clinical status and response to treatment. The patient very likely will need to continue with IV treatment for the septic emboli. Thank you for this consultation. I will monitor the patient's progress with you and make further recommendations and followup as necessary. Shree Pablo MD FFD/ct , 01:47 PM , 01:59 PM
[2018-02-21] MEDS: Enoxaparin Inj 40 MG/0.4 ML Syringe SQ SCH (21:41)
[2018-02-21] MEDS ORDERED: Pharmacy Ordered Lab Info OTHER ONE (23:45)
[2018-02-22] MEDS: Vancomycin Inj 1,000 MG in Sodium Chlor 0.9% Inj 250 ML IV.SIG SCH ×4 (00:40→22:59)
[2018-02-22] MEDS: Sod Chloride 0.9% Inj 1,000 ML IV.CONT SCH ×3 (01:32→19:07)
[2018-02-22] MEDS: Piperacil/Tazo 3.375 GM Premix 50 ML IV.SIG SCH ×4 (04:53→21:30)
[2018-02-22] MEDS: guaiFENesin 600 MG ER Tablet PO SCH ×2 (08:52→20:36)
[2018-02-22] MEDS: Senna/Docusate Sodium 8.6/50 MG Tablet PO SCH ×2 (08:59→20:36)
--- NOTE | 2018-02-22 09:42 | P.PN ---
Subjective Interval history: Patient seen and examined this morning, their vitals are stable and the patient is afebrile. Denies CP or SOB. Feels weakness in right leg. Physical Exam Vital signs: Vital Signs 02/21/18 12:00 02/21/18 15:18 02/21/18 16:00 Temperature 98 F 97.7 F Pulse Rate 83 80 79 Respiratory Rate 20 16 20 Blood Pressure 115/65 132/57 L Pulse Oximetry 98 99 02/21/18 19:02 02/21/18 20:00 02/21/18 23:14 Temperature 97.9 F Pulse Rate 79 80 74 Respiratory Rate 20 18 18 Blood Pressure 127/62 Pulse Oximetry 96 02/22/18 00:00 02/22/18 04:00 02/22/18 08:00 Temperature 97.6 F 97.9 F 98.6 F Pulse Rate 88 59 L 78 Respiratory Rate 18 18 18 Blood Pressure 153/74 H 108/57 L 119/62 Pulse Oximetry 100 97 99 Intake & Output 02/21/18 02/22/18 02/22/18 18:59 06:59 18:59 Intake Total 1350 / 1350 600 / 600 300 / 300 Output Total 800 / 800 400 / 400 Balance 550 / 550 200 / 200 300 / 300 Intake: IV 1350 / 1350 600 / 600 300 / 300 NS Inj 1,000 ML @ 100 mls/hr IV 1000 / 1000 .CONT .Q10H [place] Rx#:[id number] Zosyn 3.375 GM Premix 50 ML @ 100 / 100 100 / 100 50 / 50 100 mls/hr IV.SIG Q6H [place] Rx#: [id number] Vancomycin Inj 1,000 MG In NS 250 / 250 500 / 500 250 / 250 Inj 250 ML @ 250 mls/hr IV.SIG Q8H [place] Rx#:[id number] Output: Urine 800 / 800 400 / 400 Other: # Voids 2 Date of Last Bowel Movement 02/20/18 Narrative: GENERAL: Well-appearing, no acute distress SKIN: Warm and dry. HEAD: Normocephalic. EYES: No scleral icterus. No injection or drainage. NECK: Supple, trachea midline. No JVD or lymphadenopathy. CARDIOVASCULAR: Regular rate and rhythm without murmurs, gallops, or rubs. RESPIRATORY: Breath sounds equal bilaterally. No accessory muscle use. GASTROINTESTINAL: Abdomen soft, non-tender, nondistended. MUSCULOSKELETAL: Right knee: swollen, limited ROM compared to left, medial incision is c/d/i Results - Labs CBC & Chem 7: 02/21/18 11:15 02/21/18 11:15 Laboratory Results - last 24 hr 02/21/18 02/21/18 02/22/18 11:15 11:15 00:03 WBC 5.6 RBC 3.61 L Hgb 10.5 L Hct 31.9 L MCV 88.3 MCH 29.2 MCHC 33.1 RDW 14.5 Plt Count 380 MPV 7.3 Neut % (Auto) 65.6 Lymph % (Auto) 22.6 [place] % (Auto) 8.0 Eos % (Auto) 3.2 Baso % (Auto) 0.6 Neut # (Auto) 3.7 Lymph # (Auto) 1.3 [place] # (Auto) 0.4 Eos # (Auto) 0.2 Baso # (Auto) 0.0 WBC Differential . Differential Comment Auto diff final Sodium 143 Potassium 4.1 Chloride 106 Carbon Dioxide 28.0 Anion Gap 9 BUN 8 Creatinine 0.91 Estimated GFR Greater than 89 Random Glucose 102 Calcium 8.8 Vancomycin Trough 14.9 H Microbiology 02/21/18 23:25 Sputum - Expectorated Sputum Gram Stain - Final 02/20/18 13:14 Blood - Peripheral Aerobic Blood Culture - Preliminary No growth in 1 day 02/20/18 13:14 Blood - Peripheral Anaerobic Blood Culture - Preliminary No growth in 1 day 02/20/18 13:19 Blood - Peripheral Aerobic Blood Culture - Preliminary No growth in 1 day 02/20/18 13:19 Blood - Peripheral Anaerobic Blood Culture - Preliminary No growth in 1 day Assessment and Plan - Plan In summary this is a 22-year-old male with a medical history that is significant for IV drug abuse is currently living in a sober home presented to [facility] after being notified of an abnormal outpatient chest x-ray that was obtained 3 weeks ago. The patient had received treatment from January 29 February 19 with daptomycin for septic arthritis and abscess of the right knee to calf. [facility] from [facility], could not get PICC line due to inability to get home health. Septic emboli -CTA shows evidence of bilateral cavitary nodules with bilateral septic embolic disease -He was started on vancomycin and Zosyn ID was consulted, echo pending - blood cultures no growth to date - sputum sample obtained - cont vanc and zosyn - Hep B & C negative, HIV non reactive S/P treatment of septic arthritis of right knee - treated with surgical debridement and course of daptomycin at [facility] - PT eval and treat Active IV drug abuse Patient stated he did not want to be on opioids and requested ibuprofen P prophylaxis: Lovenox Discussed Condition With: Patient Nurse
--- NOTE | 2018-02-22 15:59 | ECHRPT ---
Indication: SEPSIS ENDOCARDITIS CONCLUSIONS The left ventricular systolic function is normal with an estimated ejection fraction in the range of 60-65%. Trace mitral valve regurgitation. There is trace tricuspid valve regurgitation. No evidence of endocarditis BP: / HR: Rhythm: Technical Quality: FINDINGS LEFT VENTRICLE Normal left ventricular size. Wall thickness is normal. The left ventricular systolic function is normal with an estimated ejection fraction in the range of 60-65%. RIGHT VENTRICLE Normal right ventricular size and systolic function. LEFT ATRIUM The left atrial size is normal. RIGHT ATRIUM The right atrial size is normal. ATRIAL SEPTUM Normal atrial septal thickness without atrial level shunting by limited color doppler interrogation. AORTA The aortic root and proximal ascending aorta are normal in size on limited imaging. MITRAL VALVE Structurally normal mitral valve. No mitral valve stenosis. Trace mitral valve regurgitation. AORTIC VALVE Trileaflet aortic valve. No aortic valve stenosis or regurgitation. TRICUSPID VALVE Structurally normal tricuspid valve. There is trace tricuspid valve regurgitation. The estimated pulmonary arterial pressure is 28 mmHg. PULMONARY VALVE The pulmonary valve is not well visualized. VESSELS The inferior vena cava is normal in size. PERICARDIUM No pericardial effusion. Sp Jack DO (Electronically Signed) Final Date:22 February 2018 15:57
[2018-02-22] MEDS: Enoxaparin Inj 40 MG/0.4 ML Syringe SQ SCH (20:36)
[2018-02-23] MEDS: Piperacil/Tazo 3.375 GM Premix 50 ML IV.SIG SCH ×4 (04:16→21:02)
[2018-02-23 05:40] LABS: Baso # (Auto) 0.1 th/mm3 (0.0-0.2); Baso % (Auto) 0.9 % (0.0-2.0); Eos # (Auto) 0.3 th/mm3 (0.0-0.4); Hematocrit 32.3 % (39.0-51.0); Lymph # (Auto) 2.8 th/mm3 (1.0-4.8); Lymph % (Auto) 40.9 % (9.0-44.0); Mean Corpuscular Hemoglobin 29.7 pg (27.0-34.0); Mean Corpuscular Volume 87.2 fL (80.0-100.0); Mean Platelet Volume 7.5 fL (7.0-11.0); Mono # (Auto) 0.6 th/mm3 (0.0-0.9); Mono % (Auto) 8.3 % (0.0-8.0); Neut # (Auto) 3.1 th/mm3 (1.8-7.7); Neut % (Auto) 44.9 % (16.0-70.0); Platelet Count 413 th/mm3 (150-450); Red Cell Distribution Width 14.4 % (11.6-17.2); White Blood Count 6.8 th/mm3 (4.0-11.0)
[2018-02-23] MEDS: Sod Chloride 0.9% Inj 1,000 ML IV.CONT SCH ×2 (05:57→17:09)
[2018-02-23 06:04] LABS: Anion Gap 9 meq/L (5-15); Blood Urea Nitrogen 10 mg/dL (7-18); Calcium 8.8 mg/dL (8.5-10.1); Carbon Dioxide 25.5 meq/L (21.0-32.0); Chloride 107 meq/L (98-107); Glomerular Filtration Rate Greater Than 89 mL/min (>89); Glucose,Random 93 mg/dL (74-106); Potassium 3.9 meq/L (3.5-5.1); Sodium 141 meq/L (136-145)
[2018-02-23] MEDS: Vancomycin Inj 1,000 MG in Sodium Chlor 0.9% Inj 250 ML IV.SIG SCH ×3 (08:05→23:06)
[2018-02-23] MEDS: guaiFENesin 600 MG ER Tablet PO SCH ×2 (08:06→20:55)
[2018-02-23] MEDS: Senna/Docusate Sodium 8.6/50 MG Tablet PO SCH ×2 (08:06→21:02)
--- NOTE | 2018-02-23 08:41 | P.PN ---
Subjective Interval history: Patient seen and examined this morning, their vitals are stable and the patient is afebrile. No complaints or concerns this morning. Breathing well, denies chest pain. Anxious to know disposition and how long he will have to be on antibiotics and if he can do those in his sober living home. Physical Exam Vital signs: Vital Signs 02/22/18 12:37 02/22/18 16:00 02/22/18 20:00 Temperature 98.4 F 98.5 F 98.3 F Pulse Rate 81 81 100 H Respiratory Rate 18 Blood Pressure 121/66 123/63 130/73 Pulse Oximetry 96 100 100 02/22/18 21:30 02/23/18 00:00 02/23/18 04:00 Temperature 98.8 F 97.3 F L Pulse Rate 74 66 Respiratory Rate 18 Blood Pressure 121/68 97/53 L Pulse Oximetry 100 98 Intake & Output 02/22/18 02/23/18 02/23/18 18:59 06:59 18:59 Intake Total 600 / 600 1300 / 1300 Balance 600 / 600 1300 / 1300 Intake: IV 600 / 600 350 / 350 Zosyn 3.375 GM Premix 50 ML @ 100 / 100 100 / 100 100 mls/hr IV.SIG Q6H [place] Rx#: [id number] Vancomycin Inj 1,000 MG In NS 500 / 500 250 / 250 Inj 250 ML @ 250 mls/hr IV.SIG Q8H [place] Rx#:[id number] Oral 950 / 950 Other: # Voids 4 Date of Last Bowel Movement 02/22/18 02/22/18 02/22/18 # Bowel Movements 1 Narrative: GENERAL: Well-appearing, no acute distress SKIN: Warm and dry. HEAD: Normocephalic. EYES: No scleral icterus. No injection or drainage. NECK: Supple, trachea midline. No JVD or lymphadenopathy. CARDIOVASCULAR: Regular rate and rhythm without murmurs, gallops, or rubs. RESPIRATORY: Breath sounds equal bilaterally. No accessory muscle use. GASTROINTESTINAL: Abdomen soft, non-tender, nondistended. MUSCULOSKELETAL: Right knee: swollen, limited ROM compared to left, medial incision is c/d/i Results - Labs CBC & Chem 7: 02/23/18 05:04 02/23/18 05:04 Laboratory Results - last 24 hr 02/23/18 02/23/18 05:04 05:04 WBC 6.8 RBC 3.70 L Hgb 11.0 L Hct 32.3 L MCV 87.2 MCH 29.7 MCHC 34.0 RDW 14.4 Plt Count 413 MPV 7.5 Neut % (Auto) 44.9 Lymph % (Auto) 40.9 [place] % (Auto) 8.3 H Eos % (Auto) 5.0 H Baso % (Auto) 0.9 Neut # (Auto) 3.1 Lymph # (Auto) 2.8 [place] # (Auto) 0.6 Eos # (Auto) 0.3 Baso # (Auto) 0.1 WBC Differential . Differential Comment Auto diff final Sodium 141 Potassium 3.9 Chloride 107 Carbon Dioxide 25.5 Anion Gap 9 BUN 10 Creatinine 0.94 Estimated GFR Greater than 89 Random Glucose 93 Calcium 8.8 Microbiology 02/21/18 23:25 Sputum - Expectorated Sputum Gram Stain - Final 02/21/18 23:25 Sputum - Expectorated Sputum Sputum Culture - Preliminary Immature growth - reincubate 02/20/18 13:14 Blood - Peripheral Aerobic Blood Culture - Preliminary No growth in 2 days 02/20/18 13:14 Blood - Peripheral Anaerobic Blood Culture - Preliminary No growth in 2 days 02/20/18 13:19 Blood - Peripheral Aerobic Blood Culture - Preliminary No growth in 2 days 02/20/18 13:19 Blood - Peripheral Anaerobic Blood Culture - Preliminary No growth in 2 days Assessment and Plan - Plan In summary this is a 22-year-old male with a medical history that is significant for IV drug abuse is currently living in a sober home presented to [facility] after being notified of an abnormal outpatient chest x-ray that was obtained 3 weeks ago. The patient had received treatment from January 29 February 19 with daptomycin for septic arthritis and abscess of the right knee to calf. Recently released from long term, could not get PICC line due to inability to get home health. Septic emboli -CTA shows evidence of bilateral cavitary nodules with bilateral septic embolic disease - ECHO: Normal ejection fraction of 60-65%, trace mitral and tricuspid valve regurgitation. No evidence of endocarditis. ID is following: Cont vancomycin and Zosyn - blood cultures no growth to date - sputum sample obtained - Hep B & C negative, HIV non reactive S/P treatment of septic arthritis of right knee - treated with surgical debridement and course of daptomycin at [facility] - PT eval and treat Active IV drug abuse Patient stated he did not want to be on opioids and requested ibuprofen P prophylaxis: Lovenox Discharge Planning: Patient to return to sober living home upon discharge. If he requires IV antibiotics at discharge she would need to be set up at the [facility] as the patient is self-pay
--- NOTE | 2018-02-23 14:00 | P.PNID ---
Subjective Remarks: Patient complaining of pain in his right knee. The right knee is markedly swollen. Notes that his breathing is okay. Culture has normal brennan. Afebrile. He says that he is coughing up brown sputum. 22-year-old white male who was treated for septic arthritis of the right knee and bacteremia at [facility]. The patient was incarcerated at the [facility] on 01/23/2018 and while he was incarcerated, he developed swelling of his right knee and was sent to [facility] for evaluation and was found to have septic arthritis. He was discharged back to the [facility] on IV daptomycin to be treated for 6 weeks. The patient was discharged from the [facility] on 02/19/2018. He tells me that when he was discharged from the [facility] he was told to go and get a CT scan to evaluate an abnormal chest x-ray that was obtained about 3 weeks ago. He states that he was having problems with pain in his upper back and coughing spells and sweats and chills, which would improve with ibuprofen. He was also receiving tramadol at the [facility]. He also notes that he was having occasional cough with yellow sputum. He presented here at [place] and a CT scan of the chest was performed and it showed bilateral cavitary nodules including a cavitary mass with air fluid level and thick wall in the right lower lobe measuring 4.2 x 2.5 cm and in the left lower lobe with thick-walled cavity focus with air fluid level measuring 2 x 1.2 cm. Past Medical History: PAST MEDICAL HISTORY: Cellulitis of the right lower extremity 1 year ago. Septic arthritis of the right knee. Allergies/Adverse Reactions: Allergies No Known Allergies Allergy (Verified 02/20/18 11:44) Objective Vital Signs 02/22/18 16:00 02/22/18 20:00 02/22/18 21:30 Temperature 98.5 F 98.3 F Pulse Rate 81 100 H Respiratory Rate 18 18 Blood Pressure 123/63 130/73 Pulse Oximetry 100 100 02/23/18 00:00 02/23/18 04:00 02/23/18 08:00 Temperature 98.8 F 97.3 F L 97.9 F Pulse Rate 74 66 67 Respiratory Rate 18 18 16 Blood Pressure 121/68 97/53 L 105/51 L Pulse Oximetry 100 98 99 02/23/18 12:00 Temperature 97.7 F Pulse Rate 81 Respiratory Rate 16 Blood Pressure 104/55 L Pulse Oximetry 99 Intake & Output 02/22/18 02/23/18 02/23/18 18:59 06:59 18:59 Intake Total 600 / 600 1300 / 1300 250 / 250 Balance 600 / 600 1300 / 1300 250 / 250 Intake: IV 600 / 600 350 / 350 250 / 250 Zosyn 3.375 GM Premix 50 ML @ 100 / 100 100 / 100 100 mls/hr IV.SIG Q6H [place] Rx#: [id number] Vancomycin Inj 1,000 MG In NS 500 / 500 250 / 250 250 / 250 Inj 250 ML @ 250 mls/hr IV.SIG Q8H [place] Rx#:[id number] Oral 950 / 950 Other: # Voids 4 Date of Last Bowel Movement 02/22/18 02/22/18 02/22/18 # Bowel Movements 1 02/21/18 23:25 Sputum - Expectorated Sputum Gram Stain - Final 02/21/18 23:25 Sputum - Expectorated Sputum Sputum Culture - Final Heavy growth normal respiratory brennan 02/20/18 13:14 Blood - Peripheral Aerobic Blood Culture - Preliminary No growth in 3 days 02/20/18 13:14 Blood - Peripheral Anaerobic Blood Culture - Preliminary No growth in 3 days 02/20/18 13:19 Blood - Peripheral Aerobic Blood Culture - Preliminary No growth in 3 days 02/20/18 13:19 Blood - Peripheral Anaerobic Blood Culture - Preliminary No growth in 3 days Lab - Hematology Results 02/23/18 05:04 WBC 6.8 RBC 3.70 L Hgb 11.0 L Hct 32.3 L MCV 87.2 MCH 29.7 MCHC 34.0 RDW 14.4 Plt Count 413 MPV 7.5 Neut % (Auto) 44.9 Lymph % (Auto) 40.9 [place] % (Auto) 8.3 H Eos % (Auto) 5.0 H Baso % (Auto) 0.9 Neut # (Auto) 3.1 Lymph # (Auto) 2.8 [place] # (Auto) 0.6 Eos # (Auto) 0.3 Baso # (Auto) 0.1 WBC Differential . Differential Comment Auto diff final Lab - Chemistry Results 02/23/18 05:04 Sodium 141 Potassium 3.9 Chloride 107 Carbon Dioxide 25.5 Anion Gap 9 BUN 10 Creatinine 0.94 Estimated GFR Greater than 89 Random Glucose 93 Calcium 8.8 Imaging: ITS Impressions Chest CTA 02/20/18 12:06 CONCLUSION: 1. No evidence for pulmonary embolism. 2. Bilateral cavitary nodules identified. Bilateral septic embolic disease would be the leading consideration given the history. Physical Exam: PHYSICAL EXAMINATION: GENERAL: Well-developed male who is in no acute distress. He is awake and alert and oriented. HEENT: Head is atraumatic. Extraocular movements grossly intact. Pupils reactive to light. No icterus. Oropharynx moist mucosa without lesions. No thrush. NECK: Supple, without adenopathy. LUNGS: Slight rhonchi at the bases. HEART: Regular S1, S2, without murmurs, rubs or gallops. ABDOMEN: Bowel sounds present. Soft, no tenderness appreciated. EXTREMITIES: No clubbing or cyanosis. The patient has a scar at the inner right tibia, where an abscess was drained recently. Right knee swelling. No peripheral evidence of emboli. SKIN: No rash. NEUROLOGIC: No gross focal finding. PSYCHIATRIC: Calm and cooperative. Assessment and Plan - Plan IMPRESSION: Septic emboli lesions in the lungs in a patient with recent bacteremia and septic arthritis of the right knee. Treated with IV daptomycin 6 weeks. Left knee swelling. RECOMMENDATIONS: 1. Continue vancomycin. 2. Continue piperacillin/tazobactam. 3. Reorder sputum culture. 4. Monitor blood cultures. 5. Monitor clinical status and response to treatment. The patient very likely will need to continue with IV treatment for the septic emboli. 6. Orthopedic surgery to evaluate the right knee which is markedly swollen. Patient is status post incision and drainage of the right leg.
[2018-02-23] MEDS: Enoxaparin Inj 40 MG/0.4 ML Syringe SQ SCH (20:55)
[2018-02-24] MEDS: Sod Chloride 0.9% Inj 1,000 ML IV.CONT SCH ×2 (02:09→10:50)
[2018-02-24] MEDS: Piperacil/Tazo 3.375 GM Premix 50 ML IV.SIG SCH ×2 (04:38→10:49)
[2018-02-24] MEDS: Vancomycin Inj 1,000 MG in Sodium Chlor 0.9% Inj 250 ML IV.SIG SCH (08:37)
[2018-02-24] MEDS: Senna/Docusate Sodium 8.6/50 MG Tablet PO SCH (08:38)
[2018-02-24] MEDS: guaiFENesin 600 MG ER Tablet PO SCH (08:38)
[2018-02-24 09:57] VITALS: RESP 20; TEMP 97.7; O2SAT 99
[2018-02-24 12:21] VITALS: BP 123/71; PULSE 89
--- NOTE | 2018-02-24 12:23 | P.PNOP ---
Subjective Interval history: Previous washout of right knee and calf with ruddy removed last week in office. He is improving with range of motion and swelling has continued to decrease. He continues to take IV antibiotics Physical Exam Vital signs: Vital Signs 02/23/18 16:00 02/23/18 20:00 02/24/18 00:00 Temperature 98.2 F 98.2 F 98.1 F Pulse Rate 90 83 78 Respiratory Rate 16 18 18 Blood Pressure 122/62 119/57 L 117/56 L Pulse Oximetry 98 97 97 02/24/18 04:00 02/24/18 08:00 Temperature 98.2 F 97.7 F Pulse Rate 79 80 Respiratory Rate 18 20 Blood Pressure 121/58 L 116/57 L Pulse Oximetry 97 99 Intake & Output 02/23/18 02/24/18 02/24/18 18:59 06:59 18:59 Intake Total 2280 / 2280 350 / 350 300 / 300 Balance 2280 / 2280 350 / 350 300 / 300 Weight 75 kg Intake: IV 600 / 600 350 / 350 300 / 300 Zosyn 3.375 GM Premix 50 ML @ 100 / 100 100 / 100 50 / 50 100 mls/hr IV.SIG Q6H [place] Rx#: [id number] Vancomycin Inj 1,000 MG In NS 500 / 500 250 / 250 250 / 250 Inj 250 ML @ 250 mls/hr IV.SIG Q8H [place] Rx#:[id number] Oral 1680 / 1680 Other: # Voids 3 2 Date of Last Bowel Movement 02/23/18 02/22/18 02/23/18 # Bowel Movements 2 Narrative: Right lower extremity: No pain with hip range of motion. Knee range of motion is from 10 short of extension to 120. Distally he has intact sensation with good capillary refills with active dorsiflexion and plantar flexion of the foot. Both surgical incisions are well approximated and healing well with no erythema or drainage. He does have moderate swelling surrounding the knee. There is no erythema or drainage Results - Labs CBC & Chem 7: 02/23/18 05:04 02/23/18 05:04 Microbiology 02/20/18 13:14 Blood - Peripheral Aerobic Blood Culture - Preliminary No growth in 4 days 02/20/18 13:14 Blood - Peripheral Anaerobic Blood Culture - Preliminary No growth in 4 days 02/20/18 13:19 Blood - Peripheral Aerobic Blood Culture - Preliminary No growth in 4 days 02/20/18 13:19 Blood - Peripheral Anaerobic Blood Culture - Preliminary No growth in 4 days 02/21/18 23:25 Sputum - Expectorated Sputum Gram Stain - Final 02/21/18 23:25 Sputum - Expectorated Sputum Sputum Culture - Final Heavy growth normal respiratory brennan Assessment and Plan - Assessment and Plan Previous septic right knee and abscesses to right calf. Irrigation debridement was performed and IV antibiotics are continued. Is explained to the patient that he will continue to have some swelling in this knee due to the infection that he had prior to his admission. It may take weeks to months to continue to completely resolved. At this point he will continue to be weightbearing as tolerated and continue to work with physical therapy to continue to improve his range of motion of his knee. He will continue to take IV antibiotics. He has a follow-up visit with Dr. Fontaine approximately 3 weeks which she will continue to maintain. He is clear for discharge from orthopedic standpoint
--- NOTE | 2018-02-24 13:24 | P.PNID ---
Subjective Remarks: Patient complaining of pain in his right knee. No other complaints. Afebrile. 22-year-old white male who was treated for septic arthritis of the right knee and bacteremia at [facility]. The patient was incarcerated at the [facility] on 01/23/2018 and while he was incarcerated, he developed swelling of his right knee and was sent to [facility] for evaluation and was found to have septic arthritis. He was discharged back to the [facility] on IV daptomycin to be treated for 6 weeks. The patient was discharged from the [facility] on 02/19/2018. He tells me that when he was discharged from the [facility] he was told to go and get a CT scan to evaluate an abnormal chest x-ray that was obtained about 3 weeks ago. He states that he was having problems with pain in his upper back and coughing spells and sweats and chills, which would improve with ibuprofen. He was also receiving tramadol at the [facility]. He also notes that he was having occasional cough with yellow sputum. He presented here at [place] and a CT scan of the chest was performed and it showed bilateral cavitary nodules including a cavitary mass with air fluid level and thick wall in the right lower lobe measuring 4.2 x 2.5 cm and in the left lower lobe with thick-walled cavity focus with air fluid level measuring 2 x 1.2 cm. Past Medical History: PAST MEDICAL HISTORY: Cellulitis of the right lower extremity 1 year ago. Septic arthritis of the right knee. Allergies/Adverse Reactions: Allergies No Known Allergies Allergy (Verified 02/20/18 11:44) Objective Vital Signs 02/23/18 16:00 02/23/18 20:00 02/24/18 00:00 Temperature 98.2 F 98.2 F 98.1 F Pulse Rate 90 83 78 Respiratory Rate 16 18 18 Blood Pressure 122/62 119/57 L 117/56 L Pulse Oximetry 98 97 97 02/24/18 04:00 02/24/18 08:00 02/24/18 12:00 Temperature 98.2 F 97.7 F 97.7 F Pulse Rate 79 80 89 Respiratory Rate 18 20 20 Blood Pressure 121/58 L 116/57 L 123/71 Pulse Oximetry 97 99 99 Intake & Output 02/23/18 02/24/18 02/24/18 18:59 06:59 18:59 Intake Total 2280 / 2280 350 / 350 300 / 300 Balance 2280 / 2280 350 / 350 300 / 300 Weight 75 kg Intake: IV 600 / 600 350 / 350 300 / 300 Zosyn 3.375 GM Premix 50 ML @ 100 / 100 100 / 100 50 / 50 100 mls/hr IV.SIG Q6H [place] Rx#: [id number] Vancomycin Inj 1,000 MG In NS 500 / 500 250 / 250 250 / 250 Inj 250 ML @ 250 mls/hr IV.SIG Q8H [place] Rx#:[id number] Oral 1680 / 1680 Other: # Voids 3 2 Date of Last Bowel Movement 02/23/18 02/22/18 02/23/18 # Bowel Movements 2 02/20/18 13:14 Blood - Peripheral Aerobic Blood Culture - Preliminary No growth in 4 days 02/20/18 13:14 Blood - Peripheral Anaerobic Blood Culture - Preliminary No growth in 4 days 02/20/18 13:19 Blood - Peripheral Aerobic Blood Culture - Preliminary No growth in 4 days 02/20/18 13:19 Blood - Peripheral Anaerobic Blood Culture - Preliminary No growth in 4 days 02/21/18 23:25 Sputum - Expectorated Sputum Gram Stain - Final 02/21/18 23:25 Sputum - Expectorated Sputum Sputum Culture - Final Heavy growth normal respiratory brennan Lab - Hematology Results 02/23/18 05:04 WBC 6.8 RBC 3.70 L Hgb 11.0 L Hct 32.3 L MCV 87.2 MCH 29.7 MCHC 34.0 RDW 14.4 Plt Count 413 MPV 7.5 Neut % (Auto) 44.9 Lymph % (Auto) 40.9 [place] % (Auto) 8.3 H Eos % (Auto) 5.0 H Baso % (Auto) 0.9 Neut # (Auto) 3.1 Lymph # (Auto) 2.8 [place] # (Auto) 0.6 Eos # (Auto) 0.3 Baso # (Auto) 0.1 WBC Differential . Differential Comment Auto diff final Lab - Chemistry Results 02/23/18 05:04 Sodium 141 Potassium 3.9 Chloride 107 Carbon Dioxide 25.5 Anion Gap 9 BUN 10 Creatinine 0.94 Estimated GFR Greater than 89 Random Glucose 93 Calcium 8.8 Imaging: ITS Impressions Chest CTA 02/20/18 12:06 CONCLUSION: 1. No evidence for pulmonary embolism. 2. Bilateral cavitary nodules identified. Bilateral septic embolic disease would be the leading consideration given the history. Physical Exam: PHYSICAL EXAMINATION: GENERAL: No acute distress. He is awake and alert and oriented. HEENT: Head is atraumatic. Extraocular movements grossly intact. Pupils reactive to light. No icterus. Oropharynx moist mucosa without lesions. No thrush. NECK: Supple, without adenopathy. LUNGS: Slight rhonchi at the bases. HEART: Regular S1, S2, without murmurs, rubs or gallops. ABDOMEN: Bowel sounds present. Soft, no tenderness appreciated. EXTREMITIES: No clubbing or cyanosis. The patient has a scar at the inner right tibia, where an abscess was drained recently. Right knee swelling. No peripheral evidence of emboli. SKIN: No rash. NEUROLOGIC: No gross focal finding. PSYCHIATRIC: Calm and cooperative. Assessment and Plan - Plan IMPRESSION: Septic emboli lesions in the lungs in a patient with recent bacteremia due to MSSA and septic arthritis of the right knee due to MRSA (s) to clindamycin. Treated with IV daptomycin 6 weeks. Left knee swelling. RECOMMENDATIONS: Treat with Clindamycin PO 300mg tid x 6 weeks. Follow up with [facility] since he has no insurance. Okay for discharge form my standpoint.
--- NOTE | 2018-02-24 15:18 | P.PNIM ---
Subjective Interval history: Mr. Garcia was afebrile with stable vital signs overnight. Reports that he is doing well with exception of some back pain right of spine when he rotates or breathes deeply which has been present for 3 weeks and for continued difficulty walking on right lower extremity due to knee pathology. No chest pain, shortness of breath, abnormal urination, or abnormal BS. Patient agreeable to discharge home and follow-up with Ortho in 3 weeks. Physical Exam Vital signs: Vital Signs 02/23/18 16:00 02/23/18 20:00 02/24/18 00:00 Temperature 98.2 F 98.2 F 98.1 F Pulse Rate 90 83 78 Respiratory Rate 16 18 18 Blood Pressure 122/62 119/57 L 117/56 L Pulse Oximetry 98 97 97 02/24/18 04:00 02/24/18 08:00 02/24/18 12:00 Temperature 98.2 F 97.7 F 97.7 F Pulse Rate 79 80 89 Respiratory Rate 18 20 20 Blood Pressure 121/58 L 116/57 L 123/71 Pulse Oximetry 97 99 99 Intake & Output 02/23/18 02/24/18 02/24/18 18:59 06:59 18:59 Intake Total 2280 / 2280 350 / 350 300 / 300 Balance 2280 / 2280 350 / 350 300 / 300 Weight 75 kg Intake: IV 600 / 600 350 / 350 300 / 300 Zosyn 3.375 GM Premix 50 ML @ 100 / 100 100 / 100 50 / 50 100 mls/hr IV.SIG Q6H [place] Rx#: [id number] Vancomycin Inj 1,000 MG In NS 500 / 500 250 / 250 250 / 250 Inj 250 ML @ 250 mls/hr IV.SIG Q8H [place] Rx#:[id number] Oral 1680 / 1680 Other: # Voids 3 2 Date of Last Bowel Movement 02/23/18 02/22/18 02/23/18 # Bowel Movements 2 Narrative: GENERAL: Well-appearing, no acute distress SKIN: Warm and dry. Surgical scar on RLE HEAD: Normocephalic. EYES: EOM I NECK: No JVD or lymphadenopathy. CARDIOVASCULAR: Regular rate and rhythm without murmurs. Normal peripheral perfusion RESPIRATORY: Breath sounds equal bilaterally. No accessory muscle use. GASTROINTESTINAL: Abdomen soft, non-tender, nondistended. MUSCULOSKELETAL: Right knee: swollen, limited ROM compared to left, medial incision is c/d/i Neuro: grossly normal ROM; grossly peripheral normal motor/sensory function Results - Labs CBC & Chem 7: 02/23/18 05:04 02/23/18 05:04 Microbiology 02/20/18 13:14 Blood - Peripheral Aerobic Blood Culture - Preliminary No growth in 4 days 02/20/18 13:14 Blood - Peripheral Anaerobic Blood Culture - Preliminary No growth in 4 days 02/20/18 13:19 Blood - Peripheral Aerobic Blood Culture - Preliminary No growth in 4 days 02/20/18 13:19 Blood - Peripheral Anaerobic Blood Culture - Preliminary No growth in 4 days 02/21/18 23:25 Sputum - Expectorated Sputum Gram Stain - Final 02/21/18 23:25 Sputum - Expectorated Sputum Sputum Culture - Final Heavy growth normal respiratory brennan Assessment and Plan - Assessment (1) History of septic arthritis Code(s): Z87.39 - Personal history of other diseases of the musculoskeletal system and connective tissue Status: Acute (2) Acute septic pulmonary embolus Code(s): I26.90 - Septic pulmonary embolism without acute cor pulmonale Status : Acute - Plan In summary this is a 22-year-old male with a medical history that is significant for IV drug abuse is currently living in a sober home presented to [facility] after being notified of an abnormal outpatient chest x-ray that was obtained 3 weeks ago. The patient had received treatment from January 29 February 19 with daptomycin for septic arthritis and abscess of the right knee to calf. Recently released from senior care, could not get PICC line due to inability to get home health. Septic emboli Impression: Asymptomatic currently CTA shows evidence of bilateral cavitary nodules with bilateral septic embolic disease ECHO: Normal ejection fraction of 60-65%, trace mitral and tricuspid valve regurgitation. No evidence of endocarditis. Blood cultures no growth to date Sputum cultures negative Hep B & C negative, HIV non reactive ID consulted -stop vancomycin and Zosyn -Clindamycin 300mg TID x6 weeks -f/u with [facility] since no insurance S/P treatment of septic arthritis of right knee - treated with surgical debridement and course of daptomycin at [facility] -Orthopedic surgery consulted -explained to patient that swelling should take weeks/months to resolve; patient can continue to weight bear -outpatient PT -f/u with Orthopedic surgery in 3 weeks Active IV drug abuse Patient stated he did not want to be on opioids and requested ibuprofen Prophylaxis: Lovenox Code Status: Full code Discharge Planning: Patient to return to [facility] living home upon discharge. Discharge on oral Clindamycin x6 weeks per IV (2) Acute septic pulmonary embolus Qualifiers: Acute cor pulmonale presence: without acute cor pulmonale Qualified Code(s): I26.90 - Septic pulmonary embolism without acute cor pulmonale
--- NOTE | 2018-03-24 16:38 | P.DS ---
Date of admission: 02/20/18 16:54 Primary care physician: No Primary Care Physician Attending physician on discharge: Sean Oshea Anticipated date of discharge: 02/24/18 Brief History from admission: This is a pleasant 22-year-old male with a history of IV drug use currently in a sober living home presents to the emergency department for evaluation after being notified of a "abnormal chest x-ray" that was obtained 3 weeks ago. Patient states that he left [facility] yesterday and was being treated for a right knee septic arthritis and an abscess to the right calf. Says that he received treatment from January 29 - February 19 with daptomycin. States his last dose was yesterday. Says the PICC line was removed because patient was unable to obtain home health care. Currently, patient states that his right knee is still painful but is able to ambulate. He denies subjective fevers or chills. Denies shortness of breath but states he has pain with deep breaths in his right posterior chest. Patient update on day of discharge: Mr. Garcia was afebrile with stable vital signs overnight. Reports that he is doing well with exception of some back pain right of spine when he rotates or breathes deeply which has been present for 3 weeks and for continued difficulty walking on right lower extremity due to knee pathology. No chest pain, shortness of breath, abnormal urination, or abnormal BS. Patient agreeable to discharge home and follow-up with Ortho in 3 weeks. DS: Diagnosis - Discharge Diagnosis (1) History of septic arthritis Status: Acute (2) Acute septic pulmonary embolus Status: Acute DS: Medications - Discharge Medications Prescriptions: acetaminophen 650 mg PO Q4H PRN #30 tab PRN Reason: Temp > 100.4, headache clindamycin HCl 300 mg PO TID #126 cap cyclobenzaprine 5 mg PO TID PRN #30 tab PRN Reason: Muscle Spasm ibuprofen 800 mg PO Q8H PRN #30 tab PRN Reason: Pain of knee >5 DS: Summary Hospital Course: Mr. Garcia is a 23 yo M with PMH of IVDU who presented to [place] ED 02/20 due to chest pain and being told by other provider that he needed follow-up CT from abnormal CXR several weeks prior (per EMR review, patient developed septic arthritis while at a [facility]; he was treated ~6 weeks with Daptomycin/PICC at [facility] but was unable to get PICC at discharge due to lack of home health). CTA obtained on day admission; bilateral cavitary nodules w/ septic embolic disease found. Echo was without evidence of endocarditis. Blood cultures obtained which were subsequently found to be negative; HIV and hepatitis panel also negative. Patient was empirically placed on Vancomycin/ Zosyn on admission; ID consulted and patient was transitioned to Clindamycin 300mg TID x6 weeks. Orthopedic surgery was consulted regarding recent history of septic arthritis; patient was reassured that no repeat surgical debridement ( s/p debridement previously at ) would be needed. Outpatient PT recommended. Patient was discharged home 02/24 with Clindamycin x6 weeks and recommended f/u with [facility] and Orthopedic surgery. - Time Spent with Patient Total time spent providing and/or coordinating discharge services: Less than 30 minutes - Quality: VTE Deep Vein Thrombosis/Pulmonary Embolism Present on Admission: No Exam Vital signs: Initial Documented Vital Signs Temperature 98.9 F 02/20/18 10:48 Pulse Rate 84 02/20/18 10:48 Respiratory Rate 19 02/20/18 10:48 Blood Pressure 136/60 02/20/18 10:48 Pulse Oximetry 100 02/20/18 10:48 Last Documented Vital Signs Temperature 97.7 F 02/24/18 12:00 Pulse Rate 89 02/24/18 12:00 Respiratory Rate 20 02/24/18 12:00 Blood Pressure 123/71 02/24/18 12:00 Pulse Oximetry 99 02/24/18 12:00 Narrative: GENERAL: Well-appearing, no acute distress SKIN: Warm and dry. Surgical scar on RLE HEAD: Normocephalic. EYES: EOM I NECK: No JVD or lymphadenopathy. CARDIOVASCULAR: Regular rate and rhythm without murmurs. Normal peripheral perfusion RESPIRATORY: Breath sounds equal bilaterally. No accessory muscle use. GASTROINTESTINAL: Abdomen soft, non-tender, nondistended. MUSCULOSKELETAL: Right knee: swollen, limited ROM compared to left, medial incision is c/d/i Neuro: grossly normal ROM; grossly peripheral normal motor/sensory function Results Procedures completed during hospitalization: None - Impressions ITS Impressions Chest CTA 02/20/18 12:06 CONCLUSION: 1. No evidence for pulmonary embolism. 2. Bilateral cavitary nodules identified. Bilateral septic embolic disease would be the leading consideration given the history. Discharge Plan - Discharge Disposition Patient Disposition: 01 Discharge Home - Discharge Condition Condition: Stable - Discharge Order Discharge Orders: Discharge Order (Routine); Ordered 02/24/18 Ordered By: Sean Oshea - Discharge Details Anticipated Discharge Date: 02/24/18 - Physicians Team Primary Care Provider: Primary Care Diane Oquendo Attending Provider: Sean Oshea Other Providers: Shree Pablo MD ; Cory Christy MD ; Manoj Marrero MD
== END 2018-02-24 16:58 | disposition home or self-care (01) ==
LOC: NEPE 10:40 → NEDA 16:54 → N05 21:08
PROVIDERS: ADMIT Family Medicine; ATTEND Family Medicine